=== PATIENT | female | born 1995 | race Caucasian/White ===

== ENCOUNTER 2018-05-31 14:45 | Inpatient (IN) ==
[2018-05-31 14:57] VITALS: BMI 34.0
[2018-05-31] MEDS ORDERED: D5 1/2 NS 1000 ML 1,000 ML IV ONE (15:23)
[2018-05-31 15:28] LABS: BILIRUBIN,URINE NEGATIVE (NEGATIVE); BLOOD/HEMOGLOBIN,URINE 5+ (NEGATIVE); GLUCOSE, URINE NEGATIVE (NEGATIVE); KETONES,URINE NEGATIVE (NEGATIVE); LEUKOCYTE ESTERASE ,URINE 1+ (NEGATIVE); NITRITES,URINE NEGATIVE (NEGATIVE); PROTEIN,URINE 3+ (NEGATIVE); UROBILINOGEN,URINE NORMAL (NORMAL)
[2018-05-31 15:29] LABS: APPEARANCE,URINE CLOUDY (CLEAR); COLOR,URINE DARK YELLOW (YELLOW)
[2018-05-31 15:36] LABS: BACTERIA,URINE 2+ /HPF (NEGATIVE); MUCUS,URINE MODERATE /HPF (NEGATIVE); RBC,URINE TNTC /HPF (NONE SEEN); SQUAMOUS EPITHELIAL CELL,UR MANY /HPF (NEGATIVE)
[2018-05-31 15:38] LABS: AMNISURE ROM TEST THERE IS A RUPTURE (NO RUPTURE)
[2018-05-31 15:42] LABS: BASOPHILS % (AUTO) 0.4 % (0.2-1.0); EOSINOPHILS # (AUTO) 0.1 x10^3/uL (0.0-0.2); EOSINOPHILS % (AUTO) 0.7 % (0.9-2.9); HEMATOCRIT 39.4 % (36.0-47.0); HEMOGLOBIN 13.6 g/dL (12.0-16.0); LYMPHOCYTES # (AUTO) 2.6 X10^3/uL (1.3-2.9); LYMPHOCYTES % (AUTO) 23.5 % (21.0-51.0); MEAN CORPUSCULAR HEMOGLOBIN 30.4 pg (27.0-34.0); MEAN CORPUSCULAR HGB CONC 34.5 g/dL (33.0-35.0); MEAN CORPUSCULAR VOLUME 88.3 fL (80.0-100.0); MEAN PLATELET VOLUME 9.8 fL (7.4-11.0); MONOCYTES # (AUTO) 0.7 x10^3/uL (0.3-0.8); MONOCYTES % (AUTO) 6.4 % (0.0-13.0); NEUTROPHILS # (AUTO) 7.7 x10^3/uL (2.2-4.8); PLATELET COUNT 149 X10^3/uL (150.0-450.0); RED BLOOD COUNT 4.47 X10^6/uL (3.5-5.4); RED CELL DISTRIBUTION WIDTH 13.2 % (11.6-16.5); WHITE BLOOD COUNT 11.2 X10^3/uL (3.6-10.0)
[2018-05-31 15:49] LABS: BLOOD UREA NITROGEN 5 mg/dL (7-18); CALCIUM 8.1 mg/dL (8.5-10.1); CARBON DIOXIDE 23.3 mmol/L (21-32); CHLORIDE 103 mmol/L (98-107); SODIUM 137 mmol/L (136-145); eGFR NON BLACK RACES > 60 (>60)
[2018-05-31] MEDS ORDERED: NUBAIN INJ 200 MG VIAL MULTIDOSE IVP PRN ×2 (15:49→16:06)
[2018-05-31] MEDS ORDERED: D5LR 1L W PITOCIN 10 UNITS/L 10 UNITS/1,000 ML BAG IV PRN ×2 (15:49→16:06)
[2018-05-31] MEDS ORDERED: D5 1/2 NS 1000 ML 1,000 ML IV SCH ×2 (16:00)
[2018-05-31] MEDS ORDERED: PITOCIN ONE (16:31)
[2018-05-31] MEDS ORDERED: D5 1/2 NS 1L W PITOCIN 20 UNITS/L 20 UNITS/1,000 ML BAG IV ONE (16:32)
[2018-05-31] MEDS ORDERED: D5 LR 1000 ML 1,000 ML IV ONE (16:32)
--- NOTE | 2018-05-31 16:41 | DR.OB ---
OB Quick Note - Assessment/Plan Assessment/Plan: L&D 05/31/18 at 4:30pm S-No complaint. O-Afebrile,VSS YVC=[id number] with good LTV, +accel, no decel. CTX=q 4-5min., mild by palpation CVX=2-3cm/50%/-1/VTX SROM noted with thick meconium. IUPC and FSE placed. A-IUP at 38 4/7 weeks with SROM Multiparity desiring permanent sterilization PIH P-Begin pitocin induction Amnioinfusion F/U labs Anticipate
[2018-05-31] MEDS ORDERED: FENTANYL INJ 100 mcg ONE (16:51)
[2018-05-31] MEDS ORDERED: LR 1000 ML IV 1,000 ML IV ONE (16:51)
[2018-05-31] MEDS ORDERED: XYLOCAINE-MPF 1% ONE (16:51)
[2018-05-31] MEDS ORDERED: XYLOCAINE 1 % (PLAIN) ONE (16:51)
[2018-05-31] MEDS ORDERED: NS 1000 ML 1,000 ML ONE (16:51)
[2018-05-31] MEDS ORDERED: ADRENALINE CHL INJ ONE (16:51)
[2018-05-31] MEDS ORDERED: NAROPIN EPIDURAL 0.2% + FENTANYL 90MCG 60 ML EPI ONE (16:52)
[2018-05-31 17:10] LABS: URIC ACID 4.6 mg/dL (2.6-6.0)
[2018-05-31] MEDS: PITOCIN ONE ×2 (20:44→22:04)
[2018-05-31] MEDS ORDERED: PHENERGAN INJ 25 MG IV PRN (20:53)
--- NOTE | 2018-05-31 20:53 | DR.OB ---
OB Quick Note - Assessment/Plan Assessment/Plan: Delivery Note ENROLLMENT SPECIALIST 05/31/18 at 8:39pm Patient complete and pushing. Head delivered over intact perineum. Nose and mouth bulb suctioned. Nuchal cord x 2 reduced. Body delivered over intact perineum. Cord clamped x 2 and cut. Infant handed to attendant. Cord sent for gases. Placenta delivered spontaneously / intact / 3 vessel cord. No vaginal / perineal / CVX tears noted. Viable female , VTX/OA, wt=5'12" and 8/9, stable to NBN. Mother stable to RR. [id number].
[2018-05-31] MEDS: D5 1/2 NS 1000 ML 1,000 ML with PITOCIN 20 UNITS IV SCH ×2 (21:30)
[2018-05-31] MEDS ORDERED: ADACEL or BOOSTRIX TDaP VACCINE IM ONE (21:38)
[2018-05-31] MEDS ORDERED: MILK OF MAGNESIA PO PRN (21:38)
[2018-05-31] MEDS ORDERED: DERMOPLAST SPRAY TOP PRN (21:38)
[2018-05-31] MEDS ORDERED: AMBIEN PO PRN (21:38)
[2018-05-31] MEDS: MOTRIN TAB 800 MG PO PRN (23:37)
[2018-05-31] MEDS: ZANTAC PO SCH (23:37)
[2018-06-01] MEDS ORDERED: D5 1/2 NS 1000 ML 1,000 ML IV SCH
[2018-06-01 05:23] LABS: HEMATOCRIT 34.4 % (36.0-47.0); HEMOGLOBIN 11.9 g/dL (12.0-16.0)
[2018-06-01] MEDS: D5 1/2 NS 1000 ML 1,000 ML with PITOCIN 20 UNITS IV SCH ×2 (06:31)
[2018-06-01] MEDS ORDERED: FENTANYL INJ 100 mcg ONE (06:48)
[2018-06-01] MEDS ORDERED: LR 1000 ML IV 1,000 ML IV ONE (06:55)
[2018-06-01] MEDS ORDERED: ANCEF VIAL 1 GRAM ONE (06:55)
[2018-06-01] MEDS ORDERED: REGLAN INJ 10 MG VIAL IVP PRN (07:59)
[2018-06-01] MEDS ORDERED: BENADRYL INJ 50 MG VIAL IVP PRN (07:59)
[2018-06-01] MEDS ORDERED: PHENERGAN INJ 25 MG IVP PRN (07:59)
[2018-06-01] MEDS ORDERED: DILAUDID INJ IVP PRN (07:59)
[2018-06-01] MEDS ORDERED: DILAUDID INJ ONE (08:05)
[2018-06-01] MEDS: MOTRIN TAB 800 MG PO PRN (09:14)
[2018-06-01] MEDS: PRENATAL PLUS PO SCH (09:15)
[2018-06-01] MEDS: ZANTAC PO SCH ×2 (09:20→21:02)
[2018-06-01] MEDS ORDERED: STERILE WATER IRRIGATION IR ONE (09:43)
[2018-06-01] MEDS ORDERED: TORADOL 30 MG VIAL ONE (10:06)
[2018-06-01] MEDS ORDERED: NEOSTIGMINE INJ ONE (10:06)
[2018-06-01] MEDS ORDERED: DIPRIVAN VIAL ONE (10:06)
[2018-06-01] MEDS ORDERED: ULTANE GAS IN ONE (10:06)
[2018-06-01] MEDS ORDERED: ROBINUL ONE (10:06)
[2018-06-01] MEDS ORDERED: NORCURON INJ 10 MG VIAL ONE (10:06)
[2018-06-01] MEDS ORDERED: VERSED ONE (10:06)
[2018-06-01] MEDS: PERCOCET TAB 5/325 MG PO PRN ×2 (14:33→21:01)
[2018-06-01] MEDS: BACTROBAN CREAM TOP SCH (21:02)
[2018-06-01] MEDS: MYLICON TAB 80 MG CHEW PO PRN (21:03)
[2018-06-02] MEDS: PERCOCET TAB 5/325 MG PO PRN (04:15)
[2018-06-02] MEDS: BACTROBAN CREAM TOP SCH (05:29)
[2018-06-02] MEDS: D5 1/2 NS 1000 ML 1,000 ML with PITOCIN 20 UNITS IV SCH ×2 (05:30)
[2018-06-02] MEDS: MYLICON TAB 80 MG CHEW PO PRN (05:32)
[2018-06-02] MEDS: PRENATAL PLUS PO SCH (08:38)
[2018-06-02] MEDS: ZANTAC PO SCH (08:38)
[2018-06-02 12:31] VITALS: BP 151/83
== END 2018-06-02 13:15 | disposition home or self-care (01) | DRG 798 ==
LOC: ER 14:50 → LD 16:01 → MED/SURG 21:41
PROVIDERS: ADMIT Specialist; ATTEND Specialist
DX: O13.3 Gestational [pregnancy-induced] hypertension without significant proteinuria, third trimester; Z37.0 Single live birth; O99.89 Other specified diseases and conditions complicating pregnancy, childbirth and the puerperium; Z23 Encounter for immunization; Z3A.38 38 weeks gestation of pregnancy; Z30.2 Encounter for sterilization; G43.809 Other migraine, not intractable, without status migrainosus
CPT/HCPCS: 36415; 59409; 80048; 80307; 81001; 83615; 84112; 84450; 84460; 84550; 85014; 85018; 85025; 85384; 85610; 85730; 86592; 86850; 86900; 86901; 87086; 90715; 96365; 99284; A4216; A4217; A4222; S0197; G0434; J0171; J0690; J1170; J1885; J2250; J2590; J2704; J2710; J3010; J3490; J7030; J7120; J7121; S5010